=== PATIENT | female | born 2005 | race Caucasian/White ===

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

== ENCOUNTER 2023-02-14 14:14 | Emergency (ER) | payer MEDICAID, OTHER ==
[~2023-02-14] VITALS: Ht 160 cm; Wt 75.3 kg
[~2023-02-14 14:14] MED LIST: AMOX-430 PO; HYDR-3972 PO
--- NOTE | 2023-02-14 14:47 | NUR ---
PT IN BED 6 AOX4 BREATHING IS UNLABORED NO S/S OF DISTRESS. PT STATES THAT SHE CAN NOT SWALLOW ANYFOOD OR DRINK X3 DAYS. UPON INSPECTION PHARYNX IS INFLAMMED AND HAS WHITE DOTS BILATERALLY. CURRENTLY FEVER OF 99.5. FEVER WAS ALSO ENDORSED BY PT FOR PAST 3 DAYS HIGHEST BEING 108F.
--- NOTE | 2023-02-14 14:49 | NUR ---
STREP SWAB TAKEN AND SENT TO LAB.
[2023-02-14] MEDS ORDERED: AMOXICILLIN TRIHYDRATE 500 MG CAPSULE PO ONE ×2 (15:30→16:00)
[2023-02-14] MEDS ORDERED: IBUPROFEN 600 MG TABLET PO ONE (15:30)
[2023-02-14] MEDS ORDERED: HYDROCODONE/APAP 5/325MG TABLET PO ONE (15:30)
[2023-02-14] MEDS ORDERED: LIDOCAINE VISCOUS 2% UD 15 ML UDC ONE (15:31)
[2023-02-14] MEDS ORDERED: HYDROCODONE/APAP 5/325MG TABLET ONE (15:37)
[2023-02-14] MEDS ORDERED: IBUPROFEN 600 MG TABLET ONE (15:38)
[2023-02-14] MEDS ORDERED: AMOXICILLIN TRIHYDRATE 250 MG CAPSULE ONE (15:38)
[2023-02-14] MEDS ORDERED: PHEN30SP9 MM ×2 (15:52→18:26)
[2023-02-14] MEDS ORDERED: AMOX875T2 PO ×2 (15:52→18:26)
[2023-02-14] MEDS ORDERED: LIDOCAINE VISCOUS 2% UD 15 ML UDC MM ONE (16:00)
--- NOTE | 2023-02-14 16:09 | NUR ---
PT EDUCATED REGARDING THE USE OF ABX THERAPY AND AVALABILITY AT PHARMACY. RX GIVEN BY WAS EXPLAINED WELL. PT VOICED UNDERSTANDING AND WAS DISCHARGED IN SABLE CONDITION WITH STABLE GAIT LEFT WITH BROTHER WHO WILL BE DRIVING HER HOME.
[2023-02-14 16:10] VITALS: BP 121/73
== END 2023-02-14 16:10 | disposition home or self-care (01) ==
LOC: ER 14:16
DX: J02.0 Streptococcal pharyngitis (principal); Z60.2 Problems related to living alone; Z79.899 Other long term (current) drug therapy
CPT/HCPCS: 86403-TC

== ENCOUNTER 2024-02-13 12:16 | Emergency (ER) | payer OTHER ==
[~2024-02-13] VITALS: Ht 160 cm; Wt 73.0 kg
[~2024-02-13 12:16] MED LIST changes: +AMOX875T2 PO; +PHEN30SP9 MM
[2024-02-13 13:07] VITALS: O2SAT 99
[2024-02-13 14:18] VITALS: BP 113/68; TEMP 99; O2SAT 99
[2024-02-13] MEDS ORDERED: ACETAMINOPHEN ES 500 MG TABLET ONE (14:57)
[2024-02-13] MEDS: ACETAMINOPHEN ES 500 MG TABLET PO ONE (15:04)
== END 2024-02-13 16:33 | disposition home or self-care (01) ==
LOC: ER 12:16
DX: O26.899 Other specified pregnancy related conditions, unspecified trimester (principal); R51.9 Headache, unspecified; Z90.49 Acquired absence of other specified parts of digestive tract; Z79.899 Other long term (current) drug therapy; Z60.2 Problems related to living alone